=== PATIENT | female | born 1940 | race Caucasian/White ===

== ENCOUNTER 2020-11-13 17:20 | Emergency (ER) | payer MEDICARE ==
[2020-11-13 18:47] LABS: BASOPHIL 0.8 % (0-2); EOSINOPHIL 2.3 % (0-7); HCT 44.4 % (37.0-47.0); HGB 14.2 g/dl (12.5-16.0); LYMPHOCYTE 23.3 % (15-48); MCH 32.9 pg (25.0-31.0); MONOCYTE 13.1 % (0-12); MPV 10.5 fL (6.0-9.5); NEUTROPHIL 60.2 % (41-80); NRBC 0; PLT 227 K/uL (150-400); RBC 4.31 M/uL (4.20-5.40); RDW 12.2 % (11.5-14.0); WBC 6.4 K/uL (4.0-10.5)
[2020-11-13 18:55] LABS: BILIRUBIN 1+ mg/dL (NEGATIVE); BLOOD NEGATIVE Ery/uL (NEGATIVE); CLARITY CLEAR (CLEAR); COLOR YELLOW (YELLOW); GLUCOSE (U) NORMAL (NORMAL); LEUKOCYTES NEGATIVE Leu/uL (NEGATIVE); NITRITE NEGATIVE (NEGATIVE); PROTEIN NEGATIVE (NEGATIVE); SPECIFIC GRAVITY <=1.005 (1.001-1.030); UROBILINOGEN 0.2 mg/dL (0.2-1.0); pH 5.5 (5.0-9.0)
[2020-11-13 19:09] LABS: ALBUMIN 4.2 g/dL (3.4-5.0); BILIRUBIN - TOTAL 0.6 mg/dL (0.2-1.0); BUN/CREAT RATIO (CALC) 19.6 RATIO; CREATININE 1.02 mg/dL (0.51-0.95); GLOBULIN (CALCULATION) 3.4 g/dL; POTASSIUM 3.8 mmol/L (3.5-5.1); TOTAL PROTEIN 7.6 g/dL (6.4-8.2)
[2020-11-13 19:16] LABS: LACTIC ACID 1.9 mmol/L (0.4-1.9)
== END 2020-11-13 23:25 | disposition other institution (70) ==
LOC: FER 17:20
PROVIDERS: Nurse Practitioner Family
DX: K56.609 Unspecified intestinal obstruction, unspecified as to partial versus complete obstruction (principal); Z20.822 Contact with and (suspected) exposure to COVID-19
CPT/HCPCS: 36415; 80053; 81003; 83605; 85025; 87040; J1885; J2270; J2405; J7030; U0002